=== PATIENT | male | born 1995 | race African-American/Black ===

== ENCOUNTER 2022-08-31 04:03 | Emergency (ER) | payer OTHER, SELFPAY ==
--- NOTE | ~2022-08-31 | XR_ITS ---
Lumbosacral Spine: AP and lateral views Clinical History: Pain Findings: The normal lordotic curve is maintained. The vertebral bodies and posterior elements are i ntact. The intervertebral disc spaces are preserved. The sacroiliac joints are normally outlined. Impression: No significant abnormality. Reviewed, dictated and finalized at [facility]. Impression: No significant abnormality.
[2022-08-31 04:08] VITALS: BP 176/82; PULSE 75; RESP 20; TEMP 36.9; O2SAT 97
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
[2022-08-31] MEDS: IBUPROFEN 400 MG TABLET 800 MG PO (06:00)
== END 2022-08-31 06:40 | disposition home or self-care (01) ==
PROVIDERS: Emergency Provider Emergency Medicine; PCP Family Medicine
DX: S39.012A Strain of muscle, fascia and tendon of lower back, initial encounter (principal); V49.40XA Driver injured in collision with unspecified motor vehicles in traffic accident, initial encounter; Y92.481 Parking lot as the place of occurrence of the external cause
CPT/HCPCS: 72100; 99283; A9270